=== PATIENT | female | born 2000 | race Caucasian/White ===

== ENCOUNTER 2022-04-25 10:03 | Emergency (ER) | payer OTHER, BC, SELFPAY ==
[2022-04-25 10:18] VITALS: BP 108/65; PULSE 74; RESP 16; TEMP 37; O2SAT 99
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
== END 2022-04-25 10:40 | disposition home or self-care (01) ==
PROVIDERS: Emergency Provider Nurse Practitioner Family
DX: S06.0X0A Concussion without loss of consciousness, initial encounter (principal); V49.40XA Driver injured in collision with unspecified motor vehicles in traffic accident, initial encounter
CPT/HCPCS: 99211; G0463

== ENCOUNTER 2023-09-03 14:18 | Emergency (ER) | payer BC, SELFPAY ==
[2023-09-03 14:28] VITALS: BP 124/71; PULSE 87; RESP 18; TEMP 37.2; O2SAT 100
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
== END 2023-09-03 15:15 | disposition short-term general hospital (02) ==
PROVIDERS: Emergency Provider Nurse Practitioner
DX: R20.0 Anesthesia of skin (principal); R20.2 Paresthesia of skin
CPT/HCPCS: 99212; G0463

== ENCOUNTER 2024-01-09 08:28 | Emergency (ER) | payer BC, SELFPAY ==
--- NOTE | ~2024-01-09 | XR_ITS ---
EXAMINATION: [id number] DATE: 01/09/2024 08:56 INDICATION: Left rib pain. TECHNIQUE: A frontal view of the chest and 2 views on 3 radiographs of the left ribs were obtained. COMPARISON: None. FINDINGS: There is no pneumonia, pleural effusion, or pneumothorax. The heart size is normal. IMPRESSION: 1. No rib fracture. 2. No acute cardiopulmonary disease. Reviewed, dictated and finalized at location A.
[2024-01-09 08:38] VITALS: BP 120/67; PULSE 96; RESP 16; TEMP 37; O2SAT 99
--- NOTE | 2024-01-09 08:54 | ED_ITS ---
HPI - General Adult General Chief complaint: Unspecified Stated complaint: Poss Rib Injury Left Time Seen by Provider: 01/09/24 08:54 Source: patient Mode of arrival: ambulatory Limitations: no limitations History of Present Illness HPI narrative: 23-year-old female presents with complaint of left rib pain anterior aspect. Patient states she was wrestling around with friends 4-5 nights ago and landed on left side. No chest pain or shortness of breath. Ambulatory with steady gait. All systems reviewed and negative except as noted above. Related Data Home Medications Medication Instructions Recorded Confirmed No Home Medications 04/25/22 01/09/24 Allergies Allergy/AdvReac Type Severity Reaction Status Date / Time No Known Allergies Allergy Verified 01/09/24 09:07 Review of Systems Review of Systems: CONSTITUTIONAL: Denies fever, chills, or sweats. EYES: Denies visual changes, redness, or discharge. ENT: Denies rhinorrhea, congestion, sore throat, or otalgia. CARDIOVASCULAR: Denies chest pain, palpitations, or edema. RESPIRATORY: Denies cough or dyspnea. GASTROINTESTINAL: Denies abdominal pain, nausea, vomiting, or diarrhea. GENITOURINARY: Denies dysuria or hematuria. SKIN: Denies rash or itching. MUSCULOSKELETAL: Denies back pain, joint pain, or myalgia. Reports pain to Left ribs. NEUROLOGIC: Denies headache, numbness, or weakness. PSYCHIATRIC: Denies anxiety or depression. All other systems reviewed are negative, except as documented in HPI. PMFSH Comments At time of signature, agree with nursing past medical, surgical, social and family history. There is no relevant family history pertinent to the presenting complaint. Exam Narrative: GENERAL: This is a well-nourished, well-developed patient, in no apparent distress. HEAD: normocephalic, atraumatic. EYES: PERRL. Sclera clear/white. Vision is grossly intact. EARS: External ears normal NOSE: External nose normal NECK: Neck supple, non-tender without lymphadenopathy, masses or thyromegaly. CARDIOVASCULAR: Regular rate and rhythm without murmurs, gallops, or rubs. RESPIRATORY: Clear to auscultation. Breath sounds equal bilaterally. No wheezes, rales, or rhonchi. SKIN: warm, Dry, intact with no suspicious lesions or rash, good texture and turgor. NEURO: awake, alert, and oriented to person, place and time. There were no obvious focal neurologic abnormalities. MUSCULOSKELETAL: tenderness to anterior aspect L ribs with mild bruising. no swe lling or deformity noted Course Course Level of Care: Express Care Visit Vital Signs Vital signs: Vital Signs Temperature 37.0 C 01/09/24 08:38 Pulse Rate 96 01/09/24 08:38 Respiratory Rate 16 01/09/24 08:38 Blood Pressure 120/67 01/09/24 08:38 Pulse Oximetry 99 01/09/24 08:38 Oxygen Delivery Room Air 01/09/24 08:38 Temperature 37.0 C 01/09/24 08:38 Pulse Rate 96 01/09/24 08:38 Respiratory Rate 16 01/09/24 08:38 Blood Pressure 120/67 01/09/24 08:38 Pulse Oximetry 99 01/09/24 08:38 Oxygen Delivery Room Air 01/09/24 08:38 reviewed Medical Decision Making MDM Narrative Medical decision making narrative: discussed x-ray results with patient. Negative for fracture. Recommend ibuprofen, Tylenol, rest, ice. Patient is aware of diagnosis, understands and agrees to treatment plan. Anticipatory guidance given. Patient agrees to follow-up as directed and is aware of reasons to seek care at the emergency department. Portions of this record may have been created with voice recognition software Vital Signs Vital Signs: Vital Signs Temperature 37.0 C 01/09/24 08:38 Pulse Rate 96 01/09/24 08:38 Respiratory Rate 16 01/09/24 08:38 Blood Pressure 120/67 01/09/24 08:38 Pulse Oximetry 99 01/09/24 08:38 Oxygen Delivery Room Air 01/09/24 08:38 Temperature 37.0 C 01/09/24 08:38 Pulse Rate 96 01/09/24 08:38 Respiratory Rate 16 01/09/24 08:38 Blood Pressure 120/67 01/09/24 08:38 Pulse Oximetry 99 01/09/24 08:38 Oxygen Delivery Room Air 01/09/24 08:38 Imaging Data My impression: Agree with radiologist Radiologist's impression: EXAMINATION: [id number] DATE: 01/09/2024 08:56 INDICATION: Left rib pain. TECHNIQUE: A frontal view of the chest and 2 views on 3 radiographs of the left ribs were obtained. COMPARISON: None. FINDINGS: There is no pneumonia, pleural effusion, or pneumothorax. The heart size is normal. IMPRESSION: 1. No rib fracture. 2. No acute cardiopulmonary disease. Discharge Plan Discharge Clinical Impression: Contusion of rib on left side Patient Disposition: Home, Self-Care Condition: Stable Instructions: Antibiotic Form, Rib Contusion (ED) Additional Instructions: the x-ray of your ribs was normal. Take ibuprofen or Tylenol every 6-8 hours to treat pain. Apply ice as needed for pain. Follow-up with your primary care physician if symptoms are not improving. Prescriptions: No Action No Home Medications Follow-up/Referrals: PHYSICIAN NOT ON STAFF,NONSTAFF [Primary Care Provider] - Time of Disposition: 09:10
== END 2024-01-09 09:15 | disposition home or self-care (01) ==
PROVIDERS: Emergency Provider Nurse Practitioner Family
DX: S20.212A Contusion of left front wall of thorax, initial encounter (principal); X58.XXXA Exposure to other specified factors, initial encounter; Y93.72 Activity, wrestling
CPT/HCPCS: 71101; 99213; G0463

== ENCOUNTER 2024-10-19 09:40 | Emergency (ER) | payer BC, SELFPAY ==
[2024-10-19 09:50] VITALS: BP 117/78; PULSE 79; RESP 16; TEMP 36.8; O2SAT 100
--- NOTE | 2024-10-19 09:50 | ED_ITS ---
HPI - General Adult General Chief complaint: Skin/Abscess/Foreign Body Stated complaint: spot on butt that is hard and hot Time Seen by Provider: 10/19/24 09:59 Source: patient Mode of arrival: ambulatory Limitations: no limitations History of Present Illness HPI narrative: 24 y/o female presented for c/o red warm hard knot to the right buttocks. First noticed yesterday. Says it looked liked a black head so she had male friend squeeze out the black head.Denies any additional pus/drainage. Endorses today the red area is larger, more tender. Denies n/v/d/f/c. Denies any other skin changes. Related Data Allergies Allergy/AdvReac Type Severity Reaction Status Date / Time No Known Allergies Allergy Verified 10/19/24 10:02 Review of Systems Review of Systems: CONSTITUTIONAL: Denies body aches, fever, chills, or sweats. EYES: Denies visual changes, redness, or discharge. ENT: Denies rhinorrhea, congestion CARDIOVASCULAR: Denies chest pain, palpitations, or edema. RESPIRATORY: Denies cough or dyspnea. GASTROINTESTINAL: Denies abdominal pain, nausea, vomiting, or diarrhea. SKIN: reports right buttock skin knot MUSCULOSKELETAL: Denies back pain, joint pain, or myalgia. NEUROLOGIC: Denies headache, numbness, tingling, or weakness. PMFSH Comments At time of signature, I have reviewed and agree with nursing past medical, surgical, social and family history unless otherwise noted. Please see nursing chart for further information. There is no relevant family history pertinent to the presenting complaint Exam 2 Narrative: GENERAL: Well-appearing HEAD: Normocephalic, atraumatic. EYES: conjunctivae clear, and EOMI. ENT: Mucous membranes moist. Oropharynx without edema, erythema or lesions. NECK: Supple. No lymphadenopathy CHEST: Clear to auscultation. HEART: Regular rate and rhythm. SKIN: Warm, dry. Right medial buttock with circular area of induration 6cm sridhar meter, tender, warm. no fluctuance or active drainage. No open area. NEURO: Alert and oriented x3. Course Course Emergency Course: Patient is aware of diagnosis, understands and agrees to treatment plan. Anticipatory guidance given. Patient agrees to follow-up as directed and is aware of reasons to seek care at the emergency department. Portions of this record may have been created with voice recognition software Level of Care: Express Care Visit Vital Signs Vital signs: Vital Signs Temperature 98.2 F 10/19/24 09:50 Pulse Rate 79 10/19/24 09:50 Respiratory Rate 16 10/19/24 09:50 Blood Pressure 117/78 10/19/24 09:50 Pulse Oximetry 100 10/19/24 09:50 Oxygen Delivery Room Air 10/19/24 09:50 Temperature 98.2 F 10/19/24 09:50 Pulse Rate 79 10/19/24 09:50 Respiratory Rate 16 10/19/24 09:50 Blood Pressure 117/78 10/19/24 09:50 Pulse Oximetry 100 10/19/24 09:50 Oxygen Delivery Room Air 10/19/24 09:50 Reviewed Medical Decision Making MDM Narrative Medical decision making narrative: Discussed physical exam findings; right buttock abscess, no indication for I&D at this time, rx abx. Reviewed importance of close monitoring and possible need for I&D if no improvement. Advised supportive measures and signs/symptoms to go to the ER. Pt is appropriate for outpt treatment and f/u. Differential Diagnosis Differential Diagnosis: Viral exanthema, contact dermatitis, allergic dermatitis, eczema, urticaria, insect bites, impetigo, tinea, folliculitis, abscess, cellulitis Vital Signs Vital Signs: Vital Signs Temperature 98.2 F 10/19/24 09:50 Pulse Rate 79 10/19/24 09:50 Respiratory Rate 16 10/19/24 09:50 Blood Pressure 117/78 10/19/24 09:50 Pulse Oximetry 100 10/19/24 09:50 Oxygen Delivery Room Air 10/19/24 09:50 Temperature 98.2 F 10/19/24 09:50 Pulse Rate 79 10/19/24 09:50 Respiratory Rate 16 10/19/24 09:50 Blood Pressure 117/78 10/19/24 09:50 Pulse Oximetry 100 10/19/24 09:50 Oxygen Delivery Room Air 10/19/24 09:50 Discharge Plan Discharge Clinical Impression: Abscess Patient Disposition: Home Condition: Stable Instructions: Antibiotic Form, Abscess (ED) Additional Instructions: You may shower and Cleanse with warm soapy water Warm compresses at least 4 times a day to the site to help expel any drainage. Keep your wound covered while draining Take antibiotic as directed Tylenol and ibuprofen every 8 hours for pain as needed Follow up with your primary care physician in 2-3 days for a wound check. Go to the Emergency Department immediately if you develop any of the following symptoms: Fevers, Increased redness, pain, or swelling, or any other concerns Patient Language: Dominican Prescriptions: New doxycycline hyclate 100 mg tablet 100 mg PO BID 7 Days Qty: 14 0RF Follow-up/Referrals: PHYSICIAN NOT ON STAFF,NONSTAFF [Primary Care Provider] - Stand Alone Forms: Work/School Release IP Time of Disposition: 10:12
--- OUTSIDE RECORDS SUMMARY | 2024-10-19 10:01 | XMS_ITS | Encounter Summary ---
Author Organization [facility] Address [address] [place] [address] Care Team Providers Care Russian Rubber Name Role Phone Gabriel Ruggiero MD Primary Care Provider Reason for Visit * Reason Comments Clinical Consult Before Scheduling Encounter Details Date Type Department Care Team (Late st Contact Info) Description 10/19/2024 Nurse Triage [facility] Care - [address] [place] [address] Gabriel Ruggiero MD [address] [place] [address]. [address] [place] [address] Social History Tobacco Use Types Packs/Day Years Used Date Smoking Tobacco: Never Smokeless Tobacco: Never Alcohol Use Standard Drinks/Week Comments Not Currently 0 (1 standard drink = 0.6 oz pure alcohol) socially on the weekends with friends. 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 Topic: Symptomatic Care >> Oct 19, 2024 8:55 AM Melia Sims wrote: Has this patient seen any provider (current or former) at the requested clinic in the past? Yes, Select the appropriate age range and symptom Patient has symptoms and is seeking care. Caller Name: Renetta garza [facility] Callback Number: Telephone Information: Call Notes: she states that the patient might have an infection her on buttocks. She states that itis hard, red and hot. She would like an appointment. Age Range/Symptom: Adult 18+ - Other Symptoms: infection on butt Does patient have any of the following other urgent symptoms: No urgent symptoms requiring warm call transfer {Patient Access Instructions Verify in [employer] if the Clinic offers Walk In hours If no walk in hours or patient prefers to schedule, then schedule appointment with Clinic (Does notneed to be 24 - 48 hours) Search Team based scheduling for SAME DAY [166] Search Team based scheduling for OFFICE VISIT ESTABLISHED [130] Search Team based scheduling for VIDEO VISIT [004] Were you able to schedule appointment within patient's desired timeframe? No [place] Unable to schedule appointment within patient's desired timeframe. Patient declined all other options for immediate care, preferring to schedule first available. Scheduled appointment for n/a. If this is not clinically appropriate, please contact patient. documented in this encounter Plan of Treatment Not on file documented as of this encounter Visit Diagnoses Not on filedocumented in this encounter Additional Health Concerns Assessment Noted Time PHQ-9 Depression Total Score: 3 05/28/19 24 9:49 AM CDT documented as of this encounter Care Teams Russian Rubber Relationship Specialty Start Date End Date Gabriel Ruggiero MD [address] [place] [address] PCP - General Internal Medicine 12/31/22 documented as of this encounter
--- OUTSIDE RECORDS SUMMARY | 2024-10-19 10:01 | XMS_ITS | Encounter Summary ---
Author Organization [facility] Address [address] [place] [address] Care Team Providers Care Piano Case Maker Name Role Phone Gabriel Ruggiero MD Primary Care Provider Encounter Details Date Type Department Care Team (Late st Contact Info) Description 06/16/1999 Emergency [facility] [place] [id number] [place] [address] Er, Authorized P NO ADDRESS ON FILE Unspecified otitis media (Primary Dx) Social History Tobacco Use Types Packs/Day Years Used Date Smoking Tobacco: Never Assessed Comments Unknown Sex and Gender Information Value Date Recorded Sex Assigned at Not on file 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 [place] [address] PCP - General Internal Medicine 12/31/22 documented as of this encounter
--- OUTSIDE RECORDS SUMMARY | 2024-10-19 10:01 | XMS_ITS | Clinical Summary ---
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 Resolved Problems Problem Noted Date Diagnosed Date Resolved Date Seizure-like activity 12/29/20152023 Encounters Date Type Department Care Team Description 10/19/2024 Nurse Triage [facility] Primary Care - [address] [place] [address] Gabriel Ruggiero MD 09/14/2024 External Device Data [facility] ABSTRACTION Provider, Abstract 08/03/2024 External Device Data [facility] ABSTRACTION Provider, Abstract from Last 3 Months Immunizations Immunization Administration Dates Next Due (ADACEL/BOOSTRIX)(10 YR UP) TDAP VACCINE, 0.5ML, IM 12/31/2022,10/18/2011 (GARDASIL 9)(9-45 YRS) HUMAN PAPILLOMAVIRUS VACCINE, TYPES 6, 11, 16, 18, 31, 33, 45, 52, 58, NONAVALENT (9VHPV), 2 OR 3 DOSE, IM 01/08/2024,11/05/2023 (GARDASIL)(9-45 YRS) HUMAN P APILLOMAVIRUS VACCINE, TYPES 6, 11, 16, 18, QUADRIVALENT (4VHPV), 3 DOSE, IM 10/18/2011 (INFANRIX)(6 WKS-6 YRS) DIPT HERIA, TETANUS TOXOIDS, AND ACCELLULAR PERTUSSIS VACCINE (DTAP), 0.5 ML IM 02/07/1999 (IPOL)(6 WKS AND UP) POLIOVI KAMALA VACCINE, INACTIVATED (IPV), 3 DOSE, SUBCUT OR IM 02/07/1999 INFLUENZA VACCINE QUADRIVALENT 6 MOS UP PF IM INFLUENZA VACCINE TRIVALENT SPLIT VIRUS, (6 MOS UP), 0.5ML (PF), IM 12/25/2023 Meningococcal MCV4, Unspecified Formulation 05/2011 Family History Medical History Relation Name Comments Healthy Father Healthy Mother Healthy Sister Relation Name Status Comments Father Alive Mother Alive Sister Alive Social History Tobacco Use Types Packs/Day Years Used Date Smoking Tobacco: Never Smokeless Tobacco: Never Tobacco Cessation:Counseling Given: No Alcohol Use Standard Drinks/Week Comments Not Currently 0 (1 standard drink = 0.6 oz pure alcohol) socially on the weekends with friends. 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 Gender Identity Not on file Sexual Orientation Not on file Last Filed Vital Signs Vital Sign Reading Time Taken Comments Blood Pressure 104/56 01/12/2024 10:03 AM CDT Pulse 79 01/12/2024 10:03 AM CDT Temperature 37.4 C (99.3 F) 01/12/2024 10:03 AM CDT Respiratory Rate 18 12/25/2023 9:26 AM CDT Oxygen Saturation 96% 01/12/2024 10:03 AM CDT Inhaled Oxygen Concentration - - Weight 51.3 kg (113 lb) 01/12/2024 10:03 AM CDT Height 149.9 cm (4' 11) 01/12/2024 10:03 AM CDT Body Mass Index 22.82 01/12/2024 10:03 AM CDT Plan of Treatment Health Maintenance Due Date Last Done Comments HEPATITIS B VACCINES (1 of 3 - 19+ 3-dose series) 2017 CERVICAL CANCER SCREENING 07/19/2019 HPV/Cotest (21-29) 07/19/2019 PAP SMEAR 07/19/2019 COVID-19 Vaccine ( - 2023-2 5 season) 2023 03/04/2021 Preventative Visit- Commercial 03/17/2024 06/11/2023 , 12/31/2022 INFLUENZA VACCINE (#1) 2024 12/25/2023, 2022 DTAP/TDAP/TD VACCINES (4 - T d or Tdap) 12/31/2032 12/31/2022, 10/18/2011, 02/07/1999 CHLAMYDIA SCREENING (ANNUAL) 11-24 YEARS Discontinued 08/08/2017 HPV VACCINES Completed 01/08/2024, 10/16, 10/18/2011 Procedures Procedure Name Priority Date/Time Associated Diagnosis Comments GC/CHLAMYDIA, URINE Routine 08/08/2017 3 :47 PM CDT Dysuria Vaginal discharge from Last 3 Months or Most Recently Relevant to Health Maintenance Results * GC/CHLAMYDIA, URINE (08/08/2017 3:47 PM CDT) CHLAMYDIA DNA AMPLIFICATION NOT DETECTED Not Detected 08/09/2017 3:31 AM CDT [facility] GC DNA AMPLIFICATION NOT DETECTED Not Detected 08/09/2017 3:31 AM CDT [facility] Urine URINE SPECIMEN / Unknown Collection / Unknown 08/08/2017 3:47 PM CDT 08/08/2017 8:24 PM CDT Narrative [facility] - 08/09/2017 3:31 AM CDT Results should not be used for the evaluation of suspected sexual abuse or for other medico-legal indications. The only legally accepted results are from culture. Results cannot be used to assess therapeutic success or failure since nucleic acids may persist following antimicrobial therapy. This test was developed and its performance characteristics determined by [facility]. It has not been cleared by U.S. Food and Drug Administration.The FDA has determined that such clearance or approval is not necessary. This test is used for clinical purposes. It should not be regarded as investigational or for research.This laboratory is certified under the Clinical Laboratory Improvement Amendments of 1988 (CLIA-88) as qualified to perform high complexity clinical laboratory testing. Laura Mullins BICYCLE FITTER-BC URINE ORDERABLES COM Fin al Result [facility]# [id number] [address] [place] [address] from Last 3 Months or Most Recently Relevant to Health Maintenance Insurance [facility] [employer] ACCESS CHO[employer] RX [employer]ER[employer] Commercial Advance Directives For more information, please contact: [phone] * Full Code (Latest Code Status on File) Date Activated Date Inactivated Comments 12/29/2015 2:33 PM 12/30/2015 5:04 PM Care Teams Design Maker Relationship Specialty Start Date End Date Gabriel Ruggiero MD [address] [place] [address] PCP - General Internal Medicine 12/31/22
--- OUTSIDE RECORDS SUMMARY | 2024-10-19 10:01 | XMS_ITS | Clinical Summary ---
Author Organization [facility] Address [address] [place] [address] Care Team Providers Care Mail Handler Assistant Name Role Phone Lorenzo Chen MD Primary Care Provider [phone] Source Comments [facility] Affiliates and Associated Physician Practices is amultiple site organization consisting of ambulatory clinics and hospital sitesin [place], [place], [place] and [place]. This disclosure is being madepursuant to the Care Everywhere program and may not contain all information available regarding this patient. 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 Gender Identity Not on file Sexual Orientation Not on file Last Filed Vital Signs Vital Sign Reading Time Taken Comments Blood Pressure 100/67 09/01/2023 2:10 PM CDT Pulse 84 09/01/2023 2:10 PM CDT Temperature 36.7 C (98 F) 09/01/2023 2:10 PM CDT Respiratory Rate 17 09/01/2023 2:10 PM CDT Oxygen Saturation 97% 09/01/2023 2:10 PM CDT Inhaled Oxygen Concentration - - Weight 54.4 kg (120 lb) 09/01/2023 11:46 AM CDT Height 149.9 cm (4' 11) 09/01/2023 11:46 AM CDT Body Mass Index 24.24 09/01/2023 11:46 AM CDT Plan of Treatment Health Maintenance Due Date Last Done Comments HIV SCREENING 2013 HPV VACCINE (1 - 3-dose series) 2013 HEPATITIS C SCREENING 07/13/2016 DTAP/TDAP/TD VACCINES (1 - Tdap) 2017 HEPATITIS B VACCINE (1 of 3 - 19+ 3-dose series) 2017 PAP SMEAR 07/19/2019 COVID-19 VACCINE (2 - 2023-2 5 season) 2023 03/04/2021 DEPRESSION SCREENING 03/17/2024 INFLUENZA VACCINE (#1) 2024 12/31/2022 ZOSTER VACCINE (1 of 2) 2048 HIB VACCINE Aged Out No longer eligi ble based on patient's age to complete this topic MENINGOCOCCAL (Group B) VACC INE SHARED DECISION-MAKING Aged Out No longer eligibl e based on patient's age to complete this topic MENINGOCOCCAL GROUPS A/C/Y/W VACCINE Aged Out No longer eligible b ased on patient's age to complete this topic PNEUMOCOCCAL VACCINE Aged Out No long er eligible based on patient's age to complete this topic Insurance [address] [place] [address] [employer] Care Teams Mail Handler Assistant Relationship Specialty Start Date End Date Lorenzo Chen MD PCP - General Internal Medicine 04/02/19
--- OUTSIDE RECORDS SUMMARY | 2024-10-19 10:01 | XMS_ITS | Encounter Summary ---
Author Organization [facility] Address [address] [facility] Attn: [place] [address] Care Team Providers Care Granite Cutter Apprentice Name Role Phone Gabriel Ruggiero MD Primary Care Provider Encounter Details Date Type Department Care Team (Late st Contact Info) Description 1998 Inpatient Historical George Flores MD [address] [facility] [address] [place] [address] Neal Gibbons MD [address] [facility] [address] [place] [id number] Single liveborn, born in hospital, delivered by delivery (Primary Dx) Social History Tobacco Use Types Packs/Day Years Used Date Smoking Tobacco: Never Assessed Comments Unknown Sex and Gender Information Value Date Recorded Sex Assigned at Not on file 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 [place] [address] PCP - General Internal Medicine 12/31/22 documented as of this encounter
--- OUTSIDE RECORDS SUMMARY | 2024-10-19 10:01 | XMS_ITS | Clinical Summary ---
Author Organization [facility] Address [address] [place] [address] Phone Care Team Providers Care Mechanical Insulator Name Role Phone Gabriel Ruggiero MD Primary Care Provider Allergies No known active allergies Medications cyclobenzaprine (FLEXERIL) 5 MG Tablet Take 1 Tablet by mouth 3 times daily as needed for Muscle spasms. 15 Tablet 09/03/2023 Active Social History Tobacco Use Types Packs/Day Years Used Date Smoking Tobacco: Never Assessed Comments No Sex and Gender Information Value Date Recorded Sex Assigned at Not on file Legal Sex Female 5:27 PM CDT Gender Identity Not on file Sexual Orientation Not on file Last Filed Vital Signs Vital Sign Reading Time Taken Comments Blood Pressure 112/68 10/21/2023 9:12 AM CDT Pulse 79 10/21/2023 9:12 AM CDT Temperature 36.7 C (98.1 F) 10/21/2023 9:12 AM CDT Respiratory Rate 16 10/21/2023 9:12 AM CDT Oxygen Saturation 99% 10/21/2023 9:12 AM CDT Inhaled Oxygen Concentration - - Weight 54.4 kg (120 lb) 10/21/2023 8:02 AM CDT Height 149.9 cm (4' 11) 10/21/2023 8:02 AM CDT Body Mass Index 24.24 10/21/2023 8:02 AM CDT Plan of Treatment Not on file Insurance [facility] Care Teams Mechanical Insulator Relationship Specialty Start Date End Date Gabriel Ruggiero MD [address] [place] [address]. [address] [place] [address] PCP - General Internal Medicine 09/03/23
== END 2024-10-19 10:15 | disposition home or self-care (01) ==
PROVIDERS: Emergency Provider Nurse Practitioner Family
DX: L02.31 Cutaneous abscess of buttock (principal)
CPT/HCPCS: 99213; G0463